=== PATIENT | male | born 2000 | race Caucasian/White ===

== ENCOUNTER 2020-05-02 19:39 | Emergency (ER) | payer OTHER ==
[~2020-05-02] VITALS: Ht 187.9 cm; Wt 76.2 kg
[2020-05-02 19:40] VITALS: BP 132/87
[2020-05-02] MEDS ORDERED: IBUP-1780 PO (19:54)
--- NOTE | 2020-05-02 19:55 | ED Head Injury ---
General Chief Complaint: Head/Cervical Problems Stated Complaint: OBJECT HIT HEAD Source: patient Exam Limitations: no limitations History of Present Illness Date Seen by Provider: May 02, 2020 Time Seen by Provider: 19:50 Initial Comments 20-year-old male presents with headache suggestion day. Began after hitting himself in the head accidentally with a roll of plastic wrap all working outdoors. He said he was holding the plastic wrap and it fell out of his hands hitting him on the left side of his head. He denies any loss of consciousness or confusion. He was slightly dazed, but was able to finish work yesterday without significant difficulty. Today he also worked, but wasn't feeling well with a headache and slight sensitivity to light. Denies any nausea or vomiting, difficulty with speech, weakness. Denies history of serious head injury or concussion. No other significant medical problems or concerns. Allergies and Home Medications Allergies Coded Allergies: No Known Drug Allergies (Unverified , 05/02/20) Home Medications Ibuprofen 800 Mg Tablet, 800 MG PO Q8H PRN for PAIN Prescribed by: ASUNCION FELICIANO on 05/02/201953 Patient Home Medication List Home Medication List Reviewed: Yes Review of Systems Review of Systems Constitutional: No dizziness, No fever; malaise; No weakness Eyes: See HPI; Denies Blindness, Denies Blurred Vision, Denies Decreased Acuity, Denies Inflammation, Denies Pain; Photophobia, Glasses Ears, Nose, Mouth, Throat: denies ear pain, denies epistaxis, denies throat swelling Respiratory: No cough, No short of breath Cardiovascular: No chest pain, No palpitations Gastrointestinal: No abdominal pain, No nausea, No vomiting Musculoskeletal: No back pain, No neck pain Skin: No change in color, No rash Psychiatric/Neurological: Denies Cognitive Dysfunction; Headache; Denies Numbness, Denies Tingling Past Omkmrpd-Sxtlup-Sahikq Hx Past Med/Social Hx: Reviewed Nursing Past Med/Soc Hx Patient Social History Recent Foreign Travel: No Contact w/Someone Who Travel: No Physical Exam Vital Signs Vital Signs - First Documented 05/02/20 19:40 Temp 36.9 Pulse 57 Resp 18 B/P (MAP) 132/87 (102) Pulse Ox 100 O2 Delivery Room Air Capillary Refill : Height, Weight, BMI Height: '" Weight: lbs. oz. kg; BMI Method: General Appearance: WD/WN, no apparent distress HEENT: PERRL/EOMI, normal ENT inspection Cardiovascular: regular rate, rhythm, no edema Respiratory: chest non-tender, lungs clear Extremities: normal range of motion, normal inspection Crainal Nerves: normal hearing, normal speech, PERRL, abnormal eye position Coordination/Gait: normal finger to nose, normal gait Motor/Sensory: no motor deficit, no sensory deficit, no pronator drift Skin: normal color, warm/dry Progress/Results/Core Measures Results/Orders Vital Signs/I&O 05/02/20 19:40 Temp 36.9 Pulse 57 Resp 18 B/P (MAP) 132/87 (102) Pulse Ox 100 O2 Delivery Room Air Departure Impression Primary Impression: Concussion without loss of consciousness Qualified Codes: S06.0X0A - Concussion without loss of consciousness, initial encounter Disposition: HOME, SELF-CARE Condition: Stable Departure-Patient Inst. Decision time for Depature: 19:53 Referrals: YEVGENIY KLINE MD (PCP/Family) Primary Care Physician Patient Instructions: Concussion, Adult (DC) Scripts Ibuprofen (Ibuprofen) 800 Mg Tablet 800 MG PO Q8H PRN for PAIN, #30 TAB 0 Refills Prov: ASUNCION FELICIANO DO 05/02/20 Work/School Note: Work Release Form Date Seen in the Emergency Department: May 02, 2020 Return to Work: May 08, 2020 Restrictions: Avoid bright light, noise, exertional activity. Wear sunglasses as needed ASUNCION FELICIANO DO May 02, 2020 19:55
--- OUTSIDE RECORDS SUMMARY | 2020-05-02 20:47 | XMS REPORT | Continuity of Care Document ---
Author Author [facility] Organization [employer] Address Unknown Phone Unavailable Allergies There is no data. Medications There is no data. Problems There is no data. Procedures There is no data. Results There is no data. Encounters ACCT No. Visit Date/Time Discharge Status Pt. Type Provider Facility Loc./Unit Complaint [id number] 04/01/2019 09:50:00 04/01/2019 23:59: 59 [facility] Outpatient YEVGENIY KLINE [facility] IN [facility]
== END 2020-05-02 19:59 | disposition home or self-care (01) ==
LOC: EDUNIT# 19:39 → ER FS 19:41
DX: S06.0X0A Concussion without loss of consciousness, initial encounter (principal); W22.8XXA Striking against or struck by other objects, initial encounter
CPT/HCPCS: 99282

== ENCOUNTER 2020-05-04 12:47 | Emergency (ER) | payer OTHER, BC ==
[~2020-05-04] VITALS: Ht 187 cm; Wt 80.0 kg
[~2020-05-04 12:47] MED LIST: IBUP-1780 PO
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
--- NOTE | 2020-05-04 14:04 | Diagnostic Imaging Report ---
PROCEDURE: CT head without contrast. TECHNIQUE: Multiple contiguous axial images were obtained through the brain without the use of intravenous contrast. Auto Exposure Controls were utilized during the CT exam to meet ALARA standards for radiation dose reduction. INDICATION: Headache and head injury. COMPARISON: No prior studies are available for comparison. FINDINGS: Ventricles and sulci are within normal limits. No sulcal effacement or midline shift is detected. Cisterns are patent. Visualized paranasal sinuses are clear. IMPRESSION: No acute intracranial process is detected. Dictated by: Dictated on workstation # [id number]
[2020-05-04 14:16] VITALS: BP 131/81
== END 2020-05-04 14:16 | disposition home or self-care (01) ==
LOC: EDUNIT# 12:47 → ER FS 12:52
DX: S06.0X0A Concussion without loss of consciousness, initial encounter (principal); W22.8XXA Striking against or struck by other objects, initial encounter; Y92.59 Other trade areas as the place of occurrence of the external cause
CPT/HCPCS: 70450

== ENCOUNTER 2020-12-08 20:23 | Emergency (ER) | payer BC, OTHER ==
[2020-12-08] MEDS ORDERED: CATHETER FLUSH 10 ML SYR IV PRN (21:15)
[2020-12-08] MEDS ORDERED: NS 100 ML (IVPB) BAG IV ONE (21:15)
[2020-12-08] MEDS ORDERED: IOHEXOL 350 MG/ML 100 ML (OMNIPAQUE 350) VIAL IV ONE (21:15)
[2020-12-08] MEDS ORDERED: HOLD METFORMIN - RECEIVED CONTRAST 20 ML VIAL IV SCH (21:15)
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
[2020-12-08] MEDS ORDERED: CYCL10TA9 PO (23:35)
[2020-12-08] MEDS ORDERED: TRM50T PO (23:35)
[2020-12-08] MEDS ORDERED: HYDROcodone/APAP 5 MG/325 MG (LORTAB) TAB PO ONE (23:45)
[2020-12-09 00:12] VITALS: BP 113/73
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
--- NOTE | 2020-12-09 08:12 | Diagnostic Imaging Report ---
INDICATION: Trauma, right elbow pain FINDINGS: 3 views of the right elbow demonstrate mild degenerative changes. No fracture or dislocation is present. There is no joint effusion. IMPRESSION: Negative right elbow. Dictated by: Dictated on workstation # [id number]
--- NOTE | 2020-12-09 08:12 | Diagnostic Imaging Report ---
INDICATION: Trauma, right wrist pain. FINDINGS: 3 views of the right wrist demonstrate normal ossification. No fracture or dislocation is present. IMPRESSION: Normal right wrist. Dictated by: Dictated on workstation # [id number]
--- NOTE | 2020-12-09 08:12 | Diagnostic Imaging Report ---
INDICATION: Trauma, left femur pain FINDINGS: 2 views of the left femur demonstrate no ossification. No fracture is present. IMPRESSION: Normal left femur. Dictated by: Dictated on workstation # [id number]
--- NOTE | 2020-12-09 09:28 | Diagnostic Imaging Report ---
PROCEDURE: CT chest, abdomen, and pelvis with contrast. TECHNIQUE: Multiple contiguous axial images were obtained through the chest, abdomen, and pelvis after the administration of intravenous contrast. Auto Exposure Controls were utilized during the CT exam to meet ALARA standards for radiation dose reduction. INDICATION: Trauma. COMPARISON STUDIES: None FINDINGS: CT scan of the chest demonstrates no pulmonary emboli, aortic dissection or aneurysm. No abnormal adenopathy is present. Takeoff of the great vessels appears normal. The lungs are clear. No pleural or pericardial effusions are present. There is no abnormal adenopathy. The osseous structures are normal. Abdomen and pelvis: The liver, spleen, pancreas, adrenal glands and kidneys appear normal. No ascites or free air is present. Urinary bladder and prostate gland are normal. Abdominal wall appears normal. Bowel loops demonstrate no inflammatory changes. No fractures are present. IMPRESSION: There are no acute findings. Dictated by: Dictated on workstation # [id number]
== END 2020-12-09 00:19 | disposition home or self-care (01) ==
LOC: EDUNIT# 20:23 → ER FS 20:24
DX: S06.0X0A Concussion without loss of consciousness, initial encounter (principal); S16.1XXA Strain of muscle, fascia and tendon at neck level, initial encounter; S50.01XA Contusion of right elbow, initial encounter; S60.211A Contusion of right wrist, initial encounter; S70.12XA Contusion of left thigh, initial encounter; I10 Essential (primary) hypertension; V89.2XXA Person injured in unspecified motor-vehicle accident, traffic, initial encounter
CPT/HCPCS: 70450; 71260; 72125; 73080; 73110; 73552; 74177

== ENCOUNTER 2023-03-09 08:41 | Emergency (ER) | payer BC, OTHER ==
[~2023-03-09] VITALS: Ht 187.9 cm; Wt 83.9 kg
[~2023-03-09 08:41] MED LIST changes: +CYCL10TA25 PO; +TRM50T PO
[2023-03-09 08:52] VITALS: BP 135/75
--- NOTE | 2023-03-09 08:52 | ED Integumentary General ---
General Chief Complaint: Laceration Stated Complaint: LT FOOT LAC History of Present Illness Date Seen by Provider: Mar 09, 2023 Time Seen by Provider: 08:52 Initial Comments 23-year-old male with a laceration of his left foot. 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 He is unsure when his last tetanus was. He has no other injury. Allergies and Home Medications Allergies Coded Allergies: No Known Drug Allergies (Unverified , 05/02/20) Patient Home Medication List Home Medication List Reviewed: Yes Cyclobenzaprine HCl (Cyclobenzaprine HCl) 10 Mg Tablet, 10 MG PO TID Prescribed by: RUSSELL GOLDSMITH on 12/08/202334 Ibuprofen (Ibuprofen) 800 Mg Tablet, 800 MG PO Q8H PRN for PAIN Prescribed by: ASUNCION FELICIANO on 05/02/201953 Tramadol HCl (Tramadol HCl) 50 Mg Tablet, 50-100 MG PO Q6H PRN for PAIN Prescribed by: RUSSELL OGLDSMITH on 12/08/202334 Review of Systems Review of Systems Constitutional: see HPI EENTM: no symptoms reported Respiratory: no symptoms reported Cardiovascular: no symptoms reported Gastrointestinal: no symptoms reported Genitourinary: no symptoms reported Musculoskeletal: see HPI Skin: see HPI Psychiatric/Neurological: No Symptoms Reported Endocrine: No Symptoms Reported Past Vhzepsl-Pgzdee-Lnjbft Hx Seasonal Allergies Seasonal Allergies: No Past Medical History Surgeries: No Respiratory: No Cardiac: No Neurological: No Genitourinary: No Gastrointestinal: No Musculoskeletal: No Endocrine: No HEENT: No Cancer: No Psychosocial: No Integumentary: No Blood Disorders: No Physical Exam Vital Signs Vital Signs - First Documented 03/09/23 08:52 Temp 36.1 Pulse 63 Resp 16 B/P (MAP) 135/75 (95) Pulse Ox 97 O2 Delivery Room Air Capillary Refill : General Appearance: WD/WN, no apparent distress Respiratory: lungs clear, normal breath sounds Gastrointestinal: non tender, soft Extremities: normal range of motion, other (No signs of tendon injury or weakness noted.) Neurologic/Psychiatric: alert, normal mood/affect, oriented x 3 Skin: other Skin Problem Location: lower extremities (Left foot) Skin Problem Character: linear, other (3 cm laceration,) Procedures/Interventions Wound Location: Lower Extremities Other Wound Location Left foot Wound Length (cm): 3 Wound's Depth, Shape: linear Wound Explored: clean Betadine Prep?: Yes Anesthesia: Lidocaine w/ Epi Volume Anesthetic (ccs): 5 Suture: Vicryl Suture Size: 3-0 Number of Sutures: 6 Sterile Dressing Applied?: Yes Progress Wound was cleaned with wound chicken cleaner, saline and flushed and irrigated by nursing staff. Wound was explored throughout depth with visualization. Patient tolerated well with no immediate complications. Progress/Results/Core Measures Results/Orders My Orders Orders - PARAMJIT WADDELL DO Dipht,Pertuss(Acell),Tet Adult (Boostrix (03/09/23 09:00) Lidocaine 1% Inj 20 Ml (Xylocaine 1% Inj (03/09/23 08:53) Medications Given in ED Current Medications Medications Dose Ordered Sig/Milly Route Start Time Stop Time Status Last Admin Dose Admin Diphtheria/ Tetanus/Acell Pertussis 0.5 ml ONCE ONCE IM 03/09/23 09:00 03/09/23 09:01 DC 03/09/23 09:14 0.5 ML Vital Signs/I&O 03/09/23 08:52 Temp 36.1 Pulse 63 Resp 16 B/P (MAP) 135/75 (95) Pulse Ox 97 O2 Delivery Room Air Progress Progress Note : Progress Note Patient with 3 cm left foot laceration. There is no signs of tendon injury. Wound was explored through complete depth of wound visualized with no foreign bodies noted. Patient's laceration was repaired with 3 sutures 3-0 Vicryl, 3 sutures of 4-0 Ethilon. Patient tolerated well with no immediate complications. Departure Impression Primary Impression: Laceration of left foot excluding toes without complication Qualified Codes: S91.312A - Laceration without foreign body, left foot, initial encounter Disposition: 01 HOME, SELF-CARE Condition: Stable Departure-Patient Inst. Referrals: MANE GUERRERO APRN (PCP) Primary Care Physician [facility] (Family) Primary Care Physician Patient Instructions: Laceration Repair With Stitches ED Add. Discharge Instructions: Keep wound clean with warm soapy water. Keep covered with sterile dressing. Stitches to be removed in approximately 10 days. Please monitor for any signs of infection. Return to the ER as needed All discharge instructions reviewed with patient and/or family. Voiced understanding. PARAMJIT WADDELL DO Mar 09, 2023 08:52
[2023-03-09] MEDS ORDERED: LIDOCAINE 1% INJ 20 ML VIAL ONE (08:53)
[2023-03-09] MEDS ORDERED: TETANUS,DIPTH,PERTUSS P/F (BOOSTRIX) 0.5 ML VIAL IM ONE (09:00)
== END 2023-03-09 09:27 | disposition home or self-care (01) ==
LOC: EDUNIT# 08:41 → ER FS 08:42
DX: S91.312A Laceration without foreign body, left foot, initial encounter (principal); Z23 Encounter for immunization; W26.8XXA Contact with other sharp object(s), not elsewhere classified, initial encounter; Y92.59 Other trade areas as the place of occurrence of the external cause; Y99.0 Civilian activity done for income or pay
CPT/HCPCS: 12002; 90715

== ENCOUNTER 2023-03-19 11:50 | Emergency (ER) | payer SELFPAY ==
--- NOTE | 2023-03-19 11:54 | ED Suture Removal/Wound Check ---
Suture/Wound Re-check Suture Removal/Wound Recheck : Suture Removal/Wound Recheck: Sutures removed by RN Physical Exam Vital Signs Capillary Refill : General Appearance: WD/WN, no apparent distress Cardiovascular: normal peripheral pulses Skin: normal color, warm/dry Skin Problem Location: lower extremities (left foot sutures with laceration that appears well healed and edges well approximated. No erythema, induration, fluctuance. Tolerated removal of sutures by RN without complication) Departure Impression Primary Impression: Encounter for removal of sutures Disposition: HOME, SELF-CARE Condition: Stable Departure-Patient Inst. Decision time for Depature: 11:54 Referrals: MANE GUERRERO APRN (PCP) Primary Care Physician [facility] (Family) Primary Care Physician Patient Instructions: SUTURE REMOVAL - UNCOMPLICATED DUONG SAGE MD Mar 19, 2023 11:54
== END 2023-03-19 12:03 | disposition home or self-care (01) ==
LOC: EDUNIT# 11:50 → ER FS 11:51
DX: Z48.02 Encounter for removal of sutures (principal)